=== PATIENT | male | born 1975 | race African-American/Black ===

== ENCOUNTER 2022-02-26 12:58 | Observation (INO) ==
[2022-02-26] MEDS ORDERED: ASPIRIN CHEW 81 MG TABLET PO STA (13:53)
[2022-02-26] MEDS ORDERED: MORPHINE 2 MG/1 ML SYRINGE IV STA ×2 (13:53→15:40)
[2022-02-26 14:23] LABS: Hematocrit 27.6 VOL% (42.0-52.0); Immature Granulocytes % 0.5 %; Immature Granulocytes Absolute 0.01 #; Lymphocytes # 0.8 10*3/uL (1.4-4.0); Lymphocytes % 40.4 % (21.2-54.2); Mean Corpuscular HGB Conc 32.6 GM/DL (32-36); Mean Corpuscular Volume 90.2 FL (87-102); Mean Platelet Volume 9.1 FL (9.6-12.0); Monocytes # 0.2 10*3/uL (0.11-0.8); Monocytes % 9.6 % (1.7-12.7); Neutrophils % 47.5 % (38.7-73.9); Platelet Count 246 T/CUMM (130-400); Red Blood Count 3.06 MC/CUMM (3.8-5.5); Red Cell Distribution Width 19.2 % (9.3-17.3)
[2022-02-26 14:54] LABS: Albumin 3.1 G/DL (3.4-5.0); Bilirubin,Total 0.7 MG/DL (0.20-1.00); Calcium 8.6 MG/DL (8.5-10.1); Osmolality,Calculated 275.4 MOS/KG (273-304); Potassium 3.4 MMOL/L (3.5-5.1); Total Protein 8.1 G/DL (6.4-8.2)
[2022-02-26] MEDS ORDERED: ONDANSETRON 4 MG/2 ML VIAL IV PRN (16:43)
[2022-02-26] MEDS ORDERED: CLOPIDOGREL 300 MG TABLET PO ONE (16:54)
[2022-02-26] MEDS ORDERED: POTASSIUM CHLORIDE 20 MEQ TABLET PO ONE (16:56)
[2022-02-26] MEDS ORDERED: MAGNESIUM SULF RIDER 4 GM/100 ML PREMIX IV ONE (17:30)
[2022-02-26] MEDS: MORPHINE 2 MG/1 ML SYRINGE IV PRN (21:10)
[2022-02-26] MEDS: carvediloL 3.125 MG TABLET PO SCH (22:02)
[2022-02-26] MEDS: HEPARIN 5,000 UNIT/1 ML VIAL SUBCUT SCH (22:02)
[2022-02-27] MEDS: MORPHINE 2 MG/1 ML SYRINGE IV PRN ×2 (03:52→08:37)
[2022-02-27] MEDS: HEPARIN 5,000 UNIT/1 ML VIAL SUBCUT SCH ×2 (04:02→14:34)
[2022-02-27 06:21] LABS: Eosinophils # 0.1 10*3/uL (0.0-0.87); Eosinophils % 2.9 % (0.00-10.9); Hematocrit 25.9 VOL% (42.0-52.0); Hemoglobin 8.8 GM/DL (14.0-18.0); Immature Granulocytes % 0.5 %; Immature Granulocytes Absolute 0.01 #; Lymphocytes # 0.9 10*3/uL (1.4-4.0); Lymphocytes % 44.3 % (21.2-54.2); Mean Corpuscular Volume 88.1 FL (87-102); Mean Platelet Volume 8.9 FL (9.6-12.0); Monocytes # 0.2 10*3/uL (0.11-0.8); Monocytes % 8.1 % (1.7-12.7); Neutrophils % 44.2 % (38.7-73.9); Platelet Count 236 T/CUMM (130-400); Red Blood Count 2.94 MC/CUMM (3.8-5.5); Red Cell Distribution Width 19.2 % (9.3-17.3); White Blood Count 2.1 T/CUMM (4-12)
[2022-02-27 06:37] LABS: Calcium 8.9 MG/DL (8.5-10.1); Osmolality,Calculated 271.7 MOS/KG (273-304); Potassium 3.7 MMOL/L (3.5-5.1)
[2022-02-27] MEDS ORDERED: amLODIPine 5 MG TABLET PO SCH (09:00)
[2022-02-27] MEDS ORDERED: CLOPIDOGREL 75 MG TABLET PO SCH (09:00)
[2022-02-27] MEDS: carvediloL 3.125 MG TABLET PO SCH (09:24)
[2022-02-27] MEDS ORDERED: ROSUVASTATIN 20 MG TABLET PO SCH (10:00)
[2022-02-27] MEDS ORDERED: ASPIRIN EC 81 MG TABLET PO SCH (10:00)
[2022-02-27 12:42] VITALS: BP 126/78
== END 2022-02-27 14:55 | disposition home or self-care (01) ==
LOC: N.EDINP 12:58 → N.ED 12:58 → SUATTDRO 16:43 → N.2W 18:44
PROVIDERS: ADMIT Family Medicine; ATTEND Family Medicine